=== PATIENT | male | born 1940 | race Caucasian/White ===

== ENCOUNTER 2024-09-24 11:28 | Outpatient (RCR) | payer MEDICARE ==
[~2024-09-24 11:28] MED LIST: LIDOCAINE VISC 2% SOLN 15 ML UDC ONE; LIDOCAINE/PRILOCAINE 2.5-2.5% KIT ONE
[2024-09-24 14:58] LABS: BASOPHILS % 0.3 % (0.0-1.0); EOSINOPHILS % 0.3 % (0.0-6.0); HEMATOCRIT 35.6 % (38.2-49.6); HEMOGLOBIN 11.9 g/dL (14.0-18.0); LYMPHOCYTES % 9.7 % (18.0-39.1); MEAN CORPUSCULAR HEMOGLOBIN 34.4 pg (28-32); MEAN CORPUSCULAR HGB CONC 33.4 g/dL (31-35); MEAN CORPUSCULAR VOLUME 102.9 fL (81-99); MONOCYTES # (AUTO) 0.6 (0.2-0.8); NEUTROPHILS # (AUTO) 8.7 (2.1-6.9); NEUTROPHILS % 83.1 % (38.7-80.0); PLATELET COUNT 318 x10e3/uL (140-360); RED BLOOD COUNT 3.46 x10e6/uL (4.3-5.7); RED CELL DISTRIBUTION WIDTH 13.3 % (11.7-14.4); WHITE BLOOD COUNT 10.51 x10e3/uL (4.8-10.8)
[2024-09-24 15:14] LABS: ALBUMIN 3.9 g/dL (3.5-5.0); ALBUMIN/GLOBULIN RATIO 1.6 (0.8-2.0); BILIRUBIN,TOTAL 0.4 mg/dL (0.2-1.2); CALCIUM 9.1 mg/dL (8.4-10.2); CREATININE, SERUM 0.8 mg/dL (0.72-1.25); TOTAL PROTEIN 6.3 g/dL (6.5-8.1)
== END 2024-09-25 ==
LOC: WCC 11:28
PROVIDERS: ATTEND Nurse Practitioner Family
DX: S81.802D Unspecified open wound, left lower leg, subsequent encounter (principal)
CPT/HCPCS: 36415; 80053; 83036; 84134; 85025

== ENCOUNTER 2024-12-24 10:30 | Outpatient (RCR) | payer MEDICARE | END 2024-12-26 | LOC: WCC 10:30 | PROVIDERS: ATTEND Nurse Practitioner Family | DX: S81.802D Unspecified open wound, left lower leg, subsequent encounter (principal) | CPT/HCPCS: 87071; 87075; 87186; 87205 ==

== ENCOUNTER 2025-01-21 10:30 | Outpatient (RCR) | payer MEDICARE | END 2025-01-26 | LOC: WCC 10:30 | PROVIDERS: ATTEND Nurse Practitioner Family | DX: S81.802D Unspecified open wound, left lower leg, subsequent encounter (principal); B96.29 Other Escherichia coli [E. coli] as the cause of diseases classified elsewhere ==

== ENCOUNTER 2025-02-17 07:30 | Outpatient (RCR) | payer MEDICARE | END 2025-02-25 | LOC: WCC 07:30 | PROVIDERS: ATTEND Plastic Surgery | DX: S81.802D Unspecified open wound, left lower leg, subsequent encounter (principal) ==

== ENCOUNTER 2025-03-05 17:44 | Inpatient (IN) | payer MEDICARE ==
[~2025-03-05] VITALS: Ht 172.7 cm; Wt 78.0 kg
[2025-03-05 17:56] VITALS: TEMP 97.7
[2025-03-05 18:16] LABS: BASOPHILS % 0.3 % (0.0-1.0); EOSINOPHILS % 0.3 % (0.0-6.0); LYMPHOCYTES % 8.7 % (18.0-39.1); MONOCYTES % 6.9 % (4.4-11.3); NEUTROPHILS % 82.5 % (38.7-80.0); RED CELL DISTRIBUTION WIDTH 13.2 % (11.7-14.4)
[2025-03-05 18:35] LABS: LEUKOCYTE ESTERASE ,URINE NEGATIVE (NEGATIVE); PROTEIN,URINE DIPSTICK >=300 (NEGATIVE); URINE UROBILINOGEN 0.2 mg/dL (0.2 - 1)
[2025-03-05 18:41] LABS: EST GLOMERULAR FILTRATION RATE 78.0 ML/MIN (>=60)
[2025-03-05 18:54] LABS: WBC,URINE (MAN) 0-5 /HPF (0-5)
[2025-03-05 18:57] LABS: YEAST,URINE MODERATE
[2025-03-05] MEDS ORDERED: IOPAMIDOL 370 MG/ML 100 ML INFUS..BTL INJ ONE (19:00)
[2025-03-05] MEDS: Morphine 4mg INJECTION 4 MG/ML INJ IV STA (19:41)
[2025-03-05] MEDS: SODIUM CHLORIDE 0.9% 1000ML 1,000 ML IV STA (19:41)
[2025-03-05] MEDS: ONDANSETRON HCL INJ 2MG/ML 2ML 2 MG/ML VIAL IV STA (19:42)
[2025-03-05] MEDS: KETOROLAC TROMETHAMINE 30 MG/ML VIAL IV STA (20:20)
[2025-03-05 20:54] LABS: CORONAVIRUS COVID-19 AG NEGATIVE (NEGATIVE)
[2025-03-05] MEDS: SODIUM CHLORIDE 0.9% 1000ML 1,000 ML IV SCH (22:37)
[2025-03-05] MEDS: TAMSULOSIN HCL 0.4 MG CAP PO SCH (22:37)
[2025-03-05] MEDS ORDERED: KETOROLAC TROMETHAMINE 30 MG/ML VIAL IV PRN (22:45)
[2025-03-05] MEDS: HYDRALAZINE HCL 20 MG/ML VIAL IV PRN (22:48)
[2025-03-05 23:03] VITALS: PULSE 67; RESP 16
[2025-03-06] VITALS (10 sets, daily range): BP systolic 143–177; BP diastolic 61–81; PULSE 66–103; RESP 18–20; TEMP 97.3–99.5; O2SAT 95–100
[2025-03-06] MEDS: ONDANSETRON HCL INJ 2MG/ML 2ML 2 MG/ML VIAL IV PRN (00:48)
[2025-03-06] MEDS: Morphine 4mg INJECTION 4 MG/ML INJ IV PRN (00:50)
[2025-03-06 05:23] LABS: BASOPHILS % 0.2 % (0.0-1.0); EOSINOPHILS % 0.4 % (0.0-6.0); LYMPHOCYTES % 11.2 % (18.0-39.1); MONOCYTES % 8.1 % (4.4-11.3); NEUTROPHILS % 79.1 % (38.7-80.0); RED CELL DISTRIBUTION WIDTH 13.2 % (11.7-14.4)
[2025-03-06 06:02] LABS: EST GLOMERULAR FILTRATION RATE 67.0 ML/MIN (>=60)
[2025-03-06] MEDS ORDERED: PREDNISONE1 MG PO (09:49)
[2025-03-06] MEDS ORDERED: METHOTREXATE2.5 MG PO (09:49)
[2025-03-06] MEDS ORDERED: METFORMIN HCL500 MG PO (09:49)
[2025-03-06] MEDS ORDERED: ATORVASTATIN CA10 MG PO (09:49)
[2025-03-06] MEDS ORDERED: GABAPENTIN100 MG PO (09:49)
[2025-03-06] MEDS ORDERED: LANSOPRAZOLE30 MG PO (09:49)
[2025-03-06] MEDS ORDERED: REPAGLINIDE1 MG PO (09:49)
[2025-03-06] MEDS ORDERED: B12 PO (09:51)
[2025-03-06] MEDS ORDERED: FOLIC ACID PO (09:51)
[2025-03-06] MEDS ORDERED: NIACINAMIDE PO (09:58)
[2025-03-06] MEDS: DOCUSATE SODIUM 100 MG CAP PO ONE (18:41)
[2025-03-06] MEDS: PANTOPRAZOLE SOD 40 MG TABEC PO SCH (21:10)
[2025-03-06] MEDS: ATORVASTATIN 10 MG TAB PO SCH (21:10)
[2025-03-07] VITALS (7 sets, daily range): BP systolic 146–189; BP diastolic 64–79; PULSE 68–82; RESP 18–20; TEMP 97.6–98.6; O2SAT 98–100
[2025-03-07 05:53] LABS: BASOPHILS % 0.4 % (0.0-1.0); EOSINOPHILS % 2.1 % (0.0-6.0); LYMPHOCYTES % 14.3 % (18.0-39.1); MONOCYTES % 8.0 % (4.4-11.3); NEUTROPHILS % 74.1 % (38.7-80.0); RED CELL DISTRIBUTION WIDTH 13.1 % (11.7-14.4)
[2025-03-07] MEDS: PREDNISONE PO SCH (06:00)
[2025-03-07] MEDS: FOLIC ACID 1 MG TAB PO SCH (06:18)
[2025-03-07 06:23] LABS: EST GLOMERULAR FILTRATION RATE 85.0 ML/MIN (>=60)
[2025-03-07] MEDS: REPAGLINIDE 1 MG TAB PO SCH (08:55)
[2025-03-07] MEDS: GABAPENTIN 100 MG CAP PO SCH (08:56)
[2025-03-07] MEDS: NIACINAMIDE 500 MG PO SCH (09:00)
[2025-03-07] MEDS: CYANOCOBALAMIN 1,000 MCG TAB PO SCH (11:43)
[2025-03-07] MEDS: METFORMIN HCL 500 MG TAB PO SCH (21:27)
[2025-03-08] VITALS (8 sets, daily range): BP systolic 150–179; BP diastolic 66–76; PULSE 69–83; RESP 18–20; TEMP 97.4–98.5; O2SAT 96–100
[2025-03-08 07:50] LABS: BASOPHILS % 0.5 % (0.0-1.0); EOSINOPHILS % 2.3 % (0.0-6.0); LYMPHOCYTES % 10.5 % (18.0-39.1); MONOCYTES % 7.6 % (4.4-11.3); NEUTROPHILS % 78.3 % (38.7-80.0); RED CELL DISTRIBUTION WIDTH 13.2 % (11.7-14.4)
[2025-03-08 08:09] LABS: EST GLOMERULAR FILTRATION RATE 87.0 ML/MIN (>=60)
[2025-03-09 05:41] VITALS: BP 169/81; PULSE 74; RESP 16; TEMP 97.8; O2SAT 100
[2025-03-09 08:00] VITALS: BP 175/66; PULSE 68; RESP 18; TEMP 97.6; O2SAT 100
[2025-03-09 08:09] VITALS: BP 175/66; PULSE 68; RESP 18; TEMP 97.6; O2SAT 100
[2025-03-09 12:00] VITALS: BP 129/51; PULSE 75; RESP 18; TEMP 97.7; O2SAT 100
[2025-03-09] MEDS ORDERED: FLOMAX0.4 MG PO (12:32)
== END 2025-03-09 13:35 | disposition home or self-care (01) | DRG 690 ==
LOC: ER 17:48 → ERHOLD 22:00 → MED/SURG 23:17
PROVIDERS: ADMIT Internal Medicine; ATTEND Internal Medicine
DX: N13.6 Pyonephrosis (principal); I16.0 Hypertensive urgency; E83.51 Hypocalcemia; E11.65 Type 2 diabetes mellitus with hyperglycemia; B96.20 Unspecified Escherichia coli [E. coli] as the cause of diseases classified elsewhere; E78.5 Hyperlipidemia, unspecified; E86.0 Dehydration; N40.0 Benign prostatic hyperplasia without lower urinary tract symptoms; I10 Essential (primary) hypertension; R31.29 Other microscopic hematuria; R53.81 Other malaise; K44.9 Diaphragmatic hernia without obstruction or gangrene; Z11.52 Encounter for screening for COVID-19; Z85.828 Personal history of other malignant neoplasm of skin; Z90.49 Acquired absence of other specified parts of digestive tract
CPT/HCPCS: 36415; 74177; 80048; 80053; 81001; 82550; 82948; 83690; 84484; 85025; 87086; 87186; 93005; 99252; 99284; J0360; J1885; J2270; J2405; J2470; J2543; J7030; Q9967